=== PATIENT | female | born 1975 ===

== ENCOUNTER 2022-06-16 10:52 | Outpatient (RCR) | payer BC | END 2022-06-17 | LOC: PT 10:52 | PROVIDERS: ATTEND Specialist | DX: M25.571 Pain in right ankle and joints of right foot (principal) ==

== ENCOUNTER 2022-07-14 11:00 | Outpatient (RCR) | payer BC | END 2022-07-15 | LOC: PT 11:00 | PROVIDERS: ATTEND Specialist | DX: M25.571 Pain in right ankle and joints of right foot (principal) ==